=== PATIENT | male | born 1950 | race Caucasian/White ===

== ENCOUNTER 2024-03-21 10:00 | Outpatient (RCR) | payer OTHER, SELFPAY | END 2024-03-22 23:59 | disposition home or self-care (01) | LOC: CR 10:00 | PROVIDERS: Visit Provider Internal Medicine Cardiovascular Disease | DX: I25.810 Atherosclerosis of coronary artery bypass graft(s) without angina pectoris (principal); Z51.89 Encounter for other specified aftercare | CPT/HCPCS: S9472 ==

== ENCOUNTER 2024-04-22 10:28 | Outpatient (RCR) | payer OTHER, SELFPAY | END 2024-04-22 23:59 | disposition home or self-care (01) | LOC: CR 10:28 | PROVIDERS: Visit Provider Internal Medicine Cardiovascular Disease | DX: I25.810 Atherosclerosis of coronary artery bypass graft(s) without angina pectoris (principal); Z95.5 Presence of coronary angioplasty implant and graft; Z51.89 Encounter for other specified aftercare | CPT/HCPCS: S9472 ==

== ENCOUNTER 2024-05-16 10:00 | Outpatient (RCR) | payer OTHER, SELFPAY | END 2024-05-20 23:59 | disposition home or self-care (01) | LOC: CR 10:00 | PROVIDERS: Visit Provider Internal Medicine Cardiovascular Disease | DX: I25.810 Atherosclerosis of coronary artery bypass graft(s) without angina pectoris (principal); Z51.89 Encounter for other specified aftercare | CPT/HCPCS: S9472 ==

== ENCOUNTER 2024-06-03 10:12 | Outpatient (RCR) | payer OTHER, SELFPAY | END 2024-06-20 23:59 | disposition home or self-care (01) | LOC: CR 10:12 | PROVIDERS: Visit Provider Internal Medicine Cardiovascular Disease | DX: I25.810 Atherosclerosis of coronary artery bypass graft(s) without angina pectoris (principal); Z51.89 Encounter for other specified aftercare; Z95.5 Presence of coronary angioplasty implant and graft | CPT/HCPCS: S9472 ==